=== PATIENT | male | born 1970 | race Caucasian/White ===

== ENCOUNTER 2017-02-23 17:02 | Emergency (ER) | payer MEDICAID ==
--- NOTE | ~2017-02-23 | CT2 ---
[facility] A Service of [facility] RADIOLOGY TEXT RESULTS PATIENT: CORIE JOSE LOCATION: [facility] : [birth year] UNIT #: [id number] AGE: [address]: Jhonatan Driscoll MD SEX: M ORDER DR: [id number] [facility] [address] [facility] [place], [place] [address] [id number] E MR#: [id number] Acc #: [id number] NAME: CORIE JOSE : 1970 SEX: M STUDY DATE/TIME: 02/23/2017 18:29 UNIT: [facility] ROOM: STUDY DESCRIPTION: CT Abd and Pelv W Cont Attending Physician: Jhonatan Driscoll M.D. Ordering Physician: Papo Glover D.O. Primary Care Physician: Gary Ness M.D. MEDICAL IMAGING REPORT This report is preliminary unless electronic signature is present EXAM CT abdomen and pelvis 02/23/2017 HISTORY Abdominal pain. Abdominal pain for [address] abdomen and pelvis performed with administration of 100 mL Isovue-370. Enteric contrast not administered. This CT exam was performed with one or more of the following radiation dose reduction techniques: automatic exposure control, adjustment of mA and/or kV according to patient size, and iterative reconstruction. COMPARISON STUDIES No comparisons. FINDINGS Lung bases show dependent atelectasis. Emphysema. Inferior heart and pericardium unremarkable. Liver, gallbladder, spleen, pancreas notable for borderline pancreatic ductal dilatation measuring up to about 4 mm in diameter with no obstructing process seen and no focal pancreatic parenchymal abnormality or adjacent inflammatory change. Probably the normal physiologic state for this patient. Correlation with any prior CT scans would be useful. Please correlate with laboratory data. Adrenal glands, kidneys unremarkable. CT PELVIS: No inguinal adenopathy. Urinary bladder unremarkable. No pelvic or retroperitoneal adenopathy. Distal esophagus, stomach, small bowel appendix normal. Colon unremarkable. Aorta normal in caliber. Mild degenerative changes in the spine. No acute-appearing bony abnormality. [facility] A Service of [facility] RADIOLOGY TEXT RESULTS PATIENT: CORIE JOSE LOCATION: [facility] #: [id number] : [birth year] UNIT #: [id number] AGE: [address]: Jhonatan Driscoll MD SEX: M ORDER DR: IMPRESSION 1. No clearly acute abnormality is seen in the abdomen or pelvis. Note is made of borderline prominence of the pancreatic duct measuring about 4 mm in diameter with no obstructing process, no biliary ductal dilatation and no focal pancreatic parenchymal abnormality or peripancreatic inflammatory change. This is probably the normal physiologic state for this patient. Correlate with laboratory data. 2. Gallbladder, kidneys, appendix unremarkable. Remainder of alimentary canal normal. 3. No abnormal fluid collections. 4. Evidence of emphysema at the lung bases. Correlate with risk factors. Minimal dependent atelectasis. Dictated by... Gwyn Villatoro M.D. THIS IS AN ELECTRONICALLY VERIFIED REPORT Gwyn Villatoro M.D. at 02/24/2017 3:05 PM LORELEI/dipti TD: 02/23/2017 23:23 JOB #: [id number] MEDICAL IMAGING REPORT Page 1 of 1 COPY
[2017-02-23 17:04] LABS: BASOPHIL% 0.3 % (0-2.5); EOSINOPHIL# 0.1 X10e3 (0-0.7); EOSINOPHIL% 1.6 % (0.0-7.0); HEMATOCRIT 47.1 % (38.0-50.0); HEMOGLOBIN 15.6 gm/dL (13.0-16.0); LYMPHOCYTE# 2.9 X10e3 (1.0-3.5); LYMPHOCYTE% 31.6 % (17.0-45.0); MEAN CELL VOLUME 87.5 FL (83-96); MEAN CORPUSCULAR HGB CONC 33.2 g/dL (30-36); MEAN PLATELET VOLUME 7.7 FL (6.5-11.5); MONOCYTE# 0.6 X10e3 (0-1.0); MONOCYTE% 6.4 % (3.0-12.0); NEUTROPHIL# 5.5 X10e3 (1.5-7.1); NEUTROPHIL% 60.1 % (40-75); PLATELET COUNT 242 X10e3 (140-420); RED BLOOD COUNT 5.38 X10e (3.90-5.60); RED CELL DISTRIBUTION WIDTH 13.9 % (11.0-15.5); WHITE BLOOD COUNT 9.1 X10e3 (4.0-10.5)
[2017-02-23 17:07] LABS: DIFF IND NO
[2017-02-23 17:20] LABS: URINE SOURCE CLEAN CATCH
[2017-02-23 17:27] LABS: ALBUMIN SERUM 4.5 g/dL (3.5-5.0); BILIRUBIN, DIRECT 0.1 mg/dL (0.0-0.2); BILIRUBIN,INDIRECT 0.6 mg/dL (0.0-0.9); BILIRUBIN,TOTAL 0.7 mg/dL (0.2-2.0); BUN/CREATININE RATIO 14.54; CALCIUM SERUM 9.5 mg/dL (8.4-10.2); CREATININE SERUM 1.1 mg/dL (0.6-1.4); GLOM FILT RATE Estimated 78.4 mL/min (>60); POTASSIUM 4.1 mmol/L (3.5-5.1); PROTEIN TOTAL SERUM 7.3 g/dL (6.0-8.3)
[2017-02-23 17:40] LABS: URINE APPEARANCE CLEAR; URINE BILIRUBIN NEG (NEG); URINE BLOOD NEG (NEG); URINE COLOR YELLOW; URINE GLUCOSE NEG (NEG); URINE KETONE NEG (NEG); URINE LEUKOCYTE ESTERASE NEG (NEG); URINE NITRATE NEG (NEG); URINE PROTEIN NEG (NEG); URINE UROBILINOGEN 0.2 MG/DL (NEG)
[2017-02-23 17:54] LABS: POC - CKMB 1.4 ng/mL (0.0-7.9); POC - TROPONIN <0.05 ng/mL (<=0.05)
[2017-02-23 18:57] LABS: CULTURE INDICATED? NO
== END 2017-02-23 20:00 | disposition home or self-care (01) ==
LOC: CED 17:02
PROVIDERS: Emergency Medicine
DX: R10.84 Generalized abdominal pain (principal); K21.9 Gastro-esophageal reflux disease without esophagitis
CPT/HCPCS: 36415; 74177; 80048; 80076; 81003; 82553; 83690; 84484; 85025; 96361; 96374; 96375; 99284; C9113; J2270; J2405; Q9967

== ENCOUNTER 2017-05-04 19:45 | Emergency (ER) | payer MEDICAID ==
--- NOTE | ~2017-05-04 | EKG ---
PATIENT: CORIE JOSE UNIT #: [id number] Ventricular Rate: 57 BPM Atrial Rate: 57 BPM P-R Interval: 136 ms QRS Duration: 90 ms Q-T Interval: 410 ms QTC Calculation(Bezet): 399 ms P [place]: 65 degrees Calculated R [place]: 70 degrees Calculated T [place]: 57 degrees Diagnosis Line: Sinus bradycardia Diagnosis Line: Nonspecific ST abnormality Diagnosis Line: Abnormal ECG Diagnosis Line: Diagnosis Line: Confirmed by ELOISE FIGUEROA MD ([id number]) on 05/05/2017 Diagnosis Line: 5:52:05 AM INTERPRETING MD: CAROLINA PEREZ
--- NOTE | ~2017-05-04 | CR72 ---
[facility] A Service of [facility] RADIOLOGY TEXT RESULTS PATIENT: CORIE JOSE LOCATION: [facility] : [birth year] UNIT #: [id number] AGE: [address]: Olayinka Victoria MD SEX: M ORDER DR: [id number] [id number] [facility] [address]. [place], [place] [address] [id number] E MR#: [id number] Acc #: [id number] NAME: COREI JOSE : 1970 SEX: M STUDY DATE/TIME: 05/04/2017 21:28 UNIT: [facility] ROOM: STUDY DESCRIPTION: CR Chest Single View Portable Attending Physician: Olayinka Victoria M.D. Ordering Physician: Ed Doctor [id number] [facility] Primary Care Physician: Gary Ness M.D. MEDICAL IMAGING REPORT This report is preliminary unless electronic signature is present EXAM Single view of the chest dated 05/04/2017 COMPARISON None. HISTORY Mid sternal chest pain which extends to the left arm with shortness of air and dizziness since this morning. FINDINGS A single AP portable view of the chest shows both lungs to be clear. The heart is normal in size. The mediastinal contour is normal. No significant bone abnormalities are seen. IMPRESSION Normal portable chest. Dictated by... Lanre Maravilla M.D. THIS IS AN ELECTRONICALLY VERIFIED REPORT Lanre Maravilla M.D. at 05/05/2017 9:02 PM CPR/mjs TD: 05/05/2017 11:02 JOB #: [id number] MEDICAL IMAGING REPORT [facility] A Service of [facility] RADIOLOGY TEXT RESULTS PATIENT: CORIE JOSE LOCATION: [facility] : [birth year] UNIT #: [id number] AGE: [address]: Olayinka Victoria MD SEX: M ORDER DR: Page 1 of 1 COPY
[2017-05-04 20:10] LABS: BASOPHIL% 0.6 % (0-2.5); DIFF IND NO; EOSINOPHIL# 0.3 X10e3 (0-0.7); EOSINOPHIL% 3.8 % (0.0-7.0); HEMATOCRIT 45.3 % (38.0-50.0); HEMOGLOBIN 14.9 gm/dL (13.0-16.0); LYMPHOCYTE# 2.4 X10e3 (1.0-3.5); LYMPHOCYTE% 29.2 % (17.0-45.0); MEAN CELL VOLUME 87.4 FL (83-96); MEAN CORPUSCULAR HEMOGLOBIN 28.7 PG (28-34); MEAN CORPUSCULAR HGB CONC 32.9 g/dL (30-36); MEAN PLATELET VOLUME 7.7 FL (6.5-11.5); MONOCYTE# 0.6 X10e3 (0-1.0); MONOCYTE% 7.3 % (3.0-12.0); NEUTROPHIL# 4.8 X10e3 (1.5-7.1); NEUTROPHIL% 59.1 % (40-75); PLATELET COUNT 235 X10e3 (140-420); RED BLOOD COUNT 5.18 X10e (3.90-5.60); RED CELL DISTRIBUTION WIDTH 14.2 % (11.0-15.5); WHITE BLOOD COUNT 8.1 X10e3 (4.0-10.5)
[2017-05-04 20:28] LABS: PROTHROMBIN TIME (PATIENT) 10.7 SECONDS (10.0-11.7)
[2017-05-04 20:42] LABS: ALBUMIN SERUM 4.6 g/dL (3.5-5.0); BILIRUBIN, DIRECT 0.1 mg/dL (0.0-0.2); BILIRUBIN,INDIRECT 0.4 mg/dL (0.0-0.9); BILIRUBIN,TOTAL 0.5 mg/dL (0.2-2.0); CALCIUM SERUM 9.1 mg/dL (8.4-10.2); POTASSIUM 3.3 mmol/L (3.5-5.1); PROTEIN TOTAL SERUM 7.2 g/dL (6.0-8.3)
[2017-05-04 20:43] LABS: POC - CKMB 3.7 ng/mL (0.0-7.9); POC - TROPONIN <0.05 ng/mL (<=0.05)
[2017-05-04 22:40] LABS: POC - CKMB 3.3 ng/mL (0.0-7.9); POC - TROPONIN <0.05 ng/mL (<=0.05)
== END 2017-05-05 00:25 | disposition home or self-care (01) ==
LOC: CED 19:45
PROVIDERS: Emergency Medicine
DX: R07.9 Chest pain, unspecified (principal); J06.9 Acute upper respiratory infection, unspecified; R06.02 Shortness of breath; K21.9 Gastro-esophageal reflux disease without esophagitis; Z98.890 Other specified postprocedural states
CPT/HCPCS: 36415; 71010; 80048; 80076; 82553; 84484; 85025; 85610; 85730; 93005; 99285